=== PATIENT | female | born 1985 | race Caucasian/White ===

== ENCOUNTER 2020-12-17 13:03 | Inpatient (IN) ==
[2020-12-17] MEDS ORDERED: Naloxone 0.4 MG/ML INJ IVP PRN (13:23)
[2020-12-17] MEDS ORDERED: Famotidine 20 MG/2 ML VIAL IVP PRN (13:23)
[2020-12-17] MEDS ORDERED: Ondansetron 4 MG/2 ML VIAL IVP PRN (13:23)
[2020-12-17] MEDS ORDERED: Metoclopramide 10 MG/2 ML VIAL IVP PRN (13:23)
[2020-12-17] MEDS ORDERED: Azithromycin 500 MG in 0.9 % Sodium Chloride 250 ML IVPB PRN (13:23)
[2020-12-17] MEDS ORDERED: *HR* Nalbuphine 10 MG/ML AMPUL IV PRN (13:23)
[2020-12-17] MEDS ORDERED: Lidocaine 1% 20 ML MDV INFILT PRN (13:23)
[2020-12-17] MEDS ORDERED: Ringers Solution, Lactated 1,000 ML IVC SCH (13:30)
[2020-12-17] MEDS ORDERED: EPHEDrine 50 MG/ML VIAL IVP PRN (13:38)
[2020-12-17] MEDS ORDERED: Epidural Premix (fent/bupiv) 110 ML EP SCH (13:45)
[2020-12-17] MEDS ORDERED: miSOPROStoL 25 MCG TABLET PO PRN (13:47)
[2020-12-17 14:35] LABS: Eosinophils % 0.5 %; Hematocrit 37.3 % (35.3-44.9); Hemoglobin 12.7 g/dL (11.5-15.4); Immature Granulocytes % 0.7 % (0-4); Lymphocytes # 1.1 K/mcL (0.6-4.6); Lymphocytes % 20.3 %; Mean Corpuscular Volume 88.2 fL (83.0-100.0); Mean Platelet Volume 11.4 fL (9.4-12.4); Monocytes # 0.4 K/mcL (0.0-1.3); Monocytes % 7.8 %; Platelet Count 205 K/mcL (140-400); Red Blood Count 4.23 M/mcL (3.82-4.97); Red Cell Distribution Width 13.2 % (11.5-14.5); Segmented Neutrophils % 70.7 %; White Blood Count 5.6 K/mcL (4.3-11.1)
[2020-12-17 14:47] LABS: Amphetamine Screen,Urine Negative ng/mL (Cutoff=1000); Barbiturate Screen,Urine Negative ng/mL (Cutoff=200); Benzodiazepines Screen,Urine Negative ng/mL (Cutoff=200); Cannabinoid Screen,Urine Negative ng/mL (Cutoff = 50); Cocaine Screen,Urine Negative ng/mL (Cutoff= 300); Opiate Screen,Urine Negative ng/mL (Cutoff=300); Phencyclidine Screen,Urine Negative ng/mL (Cutoff=25)
[2020-12-17] MEDS ORDERED: Oxytocin 20 units/ LR 1000 mL 20 UNIT/1,000 ML BAG IVC ONE (19:55)
[2020-12-17] MEDS ORDERED: *HR* HYDROmorphone (PF) 1 MG/ML SYRINGE IVP ONE (22:01)
[2020-12-17] MEDS ORDERED: *HR* HYDROmorphone (PF) 1 MG/ML SYRINGE ONE (22:03)
[2020-12-17] MEDS ORDERED: Measles/Mumps/Rubella Vacc 0.5 ML VIAL SQ PRN (23:07)
[2020-12-17] MEDS ORDERED: Oxytocin 20 units/ LR 1000 mL 20 UNIT/1,000 ML BAG IVC SCH (23:07)
[2020-12-17] MEDS ORDERED: Rho Immune Globulin 1,500 UNIT SYRINGE IM PRN (23:07)
[2020-12-17] MEDS: Ibuprofen 600 MG TABLET PO PRN (23:28)
[2020-12-18] MEDS ORDERED: Lanolin 7 G OINT...G. TP PRN (01:51)
[2020-12-18] MEDS: Ibuprofen 600 MG TABLET PO PRN ×2 (09:27→20:33)
[2020-12-18] MEDS: Prenatal Vit/FA 1 EACH TABLET PO SCH (09:27)
[2020-12-18] MEDS: Acetaminophen 325 MG TABLET PO PRN (15:02)
[2020-12-19] MEDS: Acetaminophen 325 MG TABLET PO PRN (00:50)
[2020-12-19] MEDS ORDERED: Benzocaine/Menthol 56 GM AEROSOL SPRAY TP PRN (01:15)
[2020-12-19] MEDS: Ibuprofen 600 MG TABLET PO PRN ×2 (02:23→08:22)
[2020-12-19 08:11] VITALS: BP 100/64
[2020-12-19] MEDS: Prenatal Vit/FA 1 EACH TABLET PO SCH (08:21)
== END 2020-12-19 11:25 | disposition home or self-care (01) | DRG 560 ==
LOC: 1NENULAB 13:03 → 1NENUOBS 12-18 01:02
PROVIDERS: ADMIT Registered Nurse; ATTEND Registered Nurse